=== PATIENT | male | born 1960 | race Caucasian/White ===

== ENCOUNTER → 2023-05-14 | Outpatient (CLI) | payer BC, OTHER ==
--- NOTE | 2023-05-14 09:00 | Diagnostic Imaging Report ---
EXAMINATION: CT chest without contrast (lung screening). TECHNIQUE: Multiple contiguous axial images were obtained through the chest without the use of intravenous contrast according to lung cancer screening protocol. All CT scans use one or more of the following dose optimizing techniques: automated exposure control, MA and/or KvP adjustment based on patient size and exam type or iterative reconstruction. HISTORY: 45 pack year history of smoking. COMPARISON: None available. FINDINGS: There is no edema or pneumonia. No pleural effusion. No pneumothorax. No suspicious nodules. There is mucous in the trachea. There is mild paraseptal emphysema. There is no axillary or supraclavicular lymphadenopathy. There is no mediastinal lymphadenopathy. Heart size is normal. There are mild coronary artery calcifications. No pericardial effusion. Aorta is normal in caliber. Limited views of the upper abdomen are unremarkable. There are no suspicious osseus lesions. IMPRESSION: 1. No suspicious pulmonary nodules. LUNG-RADS CATEGORY: 1 MODIFIER: None. Dictated by: Dictated on workstation # [id number]
== END ==
LOC: RAD 07:20
PROVIDERS: ATTEND Family Medicine
DX: Z12.2 Encounter for screening for malignant neoplasm of respiratory organs (principal); Z87.891 Personal history of nicotine dependence
CPT/HCPCS: 71271

== ENCOUNTER 2023-06-23 14:38 | Outpatient (CLI) | payer OTHER ==
[~2023-06-23] VITALS: Ht 177.8 cm; Wt 79.5 kg
[2023-06-23] MEDS ORDERED: LISI10TA25 PO (16:30)
[2023-06-23] MEDS ORDERED: ATOR20TA66 PO (16:30)
[2023-06-23] MEDS ORDERED: POTA99TA26 PO (16:30)
[2023-06-23] MEDS ORDERED: ZINC50TA11 PO (16:30)
[2023-06-23] MEDS ORDERED: ASCO100024 PO (16:30)
[2023-06-23] MEDS ORDERED: CHOL200052 PO (16:30)
== END 2023-06-23 16:38 | disposition home or self-care (01) ==
LOC: PREOP 14:38
PROVIDERS: ATTEND Specialist
DX: Z01.818 Encounter for other preprocedural examination (principal)

== ENCOUNTER 2023-06-26 06:05 | Day surgery (SDC) | payer OTHER ==
[~2023-06-26] VITALS: Ht 177.8 cm; Wt 79.5 kg
[~2023-06-26 06:05] MED LIST: ASCO100024 PO; ATOR20TA66 PO; CHOL200052 PO; LISI10TA25 PO; POTA99TA26 PO; ZINC50TA11 PO
[2023-06-26] MEDS ORDERED: MOXIFLOXACIN OPHTH SOLN 5 MG/ML 0.5 ML SYRINGE OP ONE (06:30)
[2023-06-26] MEDS ORDERED: LIDOCAINE PF 1% 2 ML VIAL IR PRN (06:30)
[2023-06-26] MEDS: TETRACAINE 0.5% OPHTH SOLN 5 ML BTL OU PRN ×4 (06:30→06:49)
[2023-06-26] MEDS ORDERED: TIMOLOL 0.5% (CATARACTS) 0.3 ML BTL OU PRN (06:30)
[2023-06-26] MEDS ORDERED: POVIDONE IODINE OPHTH SOLN 5% 30 ML OP ONE (06:30)
[2023-06-26] MEDS: TROPICAMIDE 1% OPH SOLN (MYDRIACYL) 15 ML BTL OP SCH ×3 (06:38→06:49)
[2023-06-26] MEDS: PHENYLEPHRINE 10% OPHTH SOLN 5 ML BTL OU SCH ×3 (06:38→06:49)
[2023-06-26 06:59] VITALS: BP 117/68
[2023-06-26] MEDS ORDERED: MIDAZOLAM INJ 2 MG/2 ML VIAL ONE (07:15)
--- NOTE | 2023-06-26 07:45 | Ophthalmologist Pre-Op Note ---
Pre-Operative Progress Note H&P Reviewed The H&P was reviewed, patient examined and no changes noted. Date H&P Reviewed: Jun 26, 2023 Time H&P Reviewed: 07:45 Pre-Op Dx Cataract, Left Eye WINNIE STEWART MD Jun 26, 2023 07:45
--- NOTE | 2023-06-26 08:04 | Ophthalmology Operative Report ---
Cataract removal/placement IOL PREOPERATIVE DIAGNOSIS: Cataract Left Eye POSTOPERATIVE DIAGNOSIS: Cataract Left Eye PROCEDURE: Cataract removal and placement of posterior chamber implant, left eye SURGEON: Isidro Stewart ANESTHESIA: Topical with sedation COMPLICATIONS: None ESTIMATED BLOOD LOSS: Minimal DESCRIPTION OF PROCEDURE: After proper informed consent was obtained, the patient, a 63 male, was taken to the Operating Room and the left eye was anesthetized with tetracaine. The left eye was then prepped and draped in the usual manner. A wire lid speculum was placed. A paracentesis was made at the left hand position. Preservative free lidocaine was injected into the anterior chamber followed by viscoelastic. A clear corneal incision was made in the temporal position. A capsulorrhexis was preformed and the central nuclear and cortical material were removed. The posterior capsule was polished and an Raymond 19.0 [id number] was placed into the capsular bag. The residual viscoelastic was aspirated and balanced saline solution was injected into the anterior chamber. Moxifloxacin was injected into the anterior chamber. The wound was checked and found to be water tight. The patient tolerated the procedure well without complications. ISIDRO STEWART MD Jun 26, 2023 08:03
[2023-06-26 08:12] VITALS: BP 118/60
--- NOTE | 2023-06-26 12:43 | Anesthesia-General Post-Op ---
MAC Patient Condition Mental Status/LOC: Same as Preop Cardiovascular: Satisfactory Nausea/Vomiting: Absent Respiratory: Satisfactory Pain: Controlled Complications: Absent Post Op Complications Complications None Follow Up Care/Instructions Patient Instructions None needed. Anesthesiology Discharge Order Discharge Order Patient was doing well after the procedure with no complaints, stable vital signs, no apparent adverse anesthesia problems. No complications reported per nursing. ALIREZA BURNS DO Jun 26, 2023 12:43
== END 2023-06-26 08:12 | disposition home or self-care (01) ==
LOC: SDC 06:05
PROVIDERS: ATTEND Specialist
DX: H25.9 Unspecified age-related cataract (principal); F17.210 Nicotine dependence, cigarettes, uncomplicated
CPT/HCPCS: 66984; V2632